=== PATIENT | female | born 1965 | race Caucasian/White ===

== ENCOUNTER → 2021-07-02 | Outpatient (CLI) | payer OTHER, SELFPAY ==
--- NOTE | 2021-07-01 | FLU_PTH ---
PATIENT: VIRIDIANA CARRASCO [facility] U#:[id number] AGE/SX: 56/F ROOM: RE07/02/[address]: Dr. Page Quispe MD : 1965 BED: DIS: 07/02/2021 SPEC #: [id number] RECD: 07/01/21 16:44 STATUS: IVA REMiranda #: [id number] VENKATA: 07/01/21 00:[address]: Page Quispe DEPT: CYTOLOGY RECD BY: Lyle Bradford ENTERED: 07/02/21 09:17 SP TYPE: Fluid OTHR DR: Dr. Geetha Barger MD Tissues: A - Thyroid gland, NOS B - Thyroid gland, NOS C - Thyroid gland, NOS D - Thyroid gland, NOS Procedures: Special Stain Group II Surgery Specimen Level IV Cytospin Fluid HEADER OPERATION: Fine needle aspiration, left and right thyroid PRE-OP DIAGNOSIS: Abnormal thyroid ultrasound TISSUE SUBMITTED: A - Right mid thyroid nodule fluid, B - Right mid thyroid nodule x6 slides, C - Left mid thyroid nodule fluid, D - Left mid thyroid nodule x6 slides DIAGNOSIS CYTOLOGY A. Right mid thyroid nodule fluid, fine needle aspiration (cytospin and cell block): Consistent with benign follicular/colloid nodule with cystic changes ([place] category II). Adequate for evaluation. B. Right mid thyroid nodule, fine needle aspiration (smears): Consistent with benign follicular nodule with cystic changes ([place] category II). Adequate for evaluation. C. Left mid thyroid nodule fluid, fine needle aspiration (cytospin and cell block): Consistent with benign follicular/colloid nodule ([place] category II). Adequate for evaluation. D. Left mid thyroid nodule, fine needle aspiration (smears): Consistent with benign follicular nodule with cystic changes ([place] category II). Adequate for evaluation. SJ:gray 07/03/2021 COMMENT Correlation with clinical, radiologic findings and appropriate follow up are necessary. CYTOLOGY STUDY Slides are reviewed. CYTOLOGY GROSS A - Received is 15 ml of red cloudy fluid labeled with the patient's name and and designated per the requisition as right mid thyroid. Submitted for cytology preparation including cell block. B - Received are six smears labeled with the patient's name and designated per the requisition as right mid thyroid. Submitted for staining. C - Received is 15 ml of red cloudy fluid labeled with the patient's name and and designated per the requisition as left mid thyroid. Submitted for cytology preparation including cell block. D - Received are six smears labeled with the patient's name and designated per the requisition as left mid thyroid. Submitted for staining. / gray 07/02/2021 TC:5 CPT: 08767 x4, 93571 x2
== END | disposition home or self-care (01) ==
LOC: LABSPEC 09:01
PROVIDERS: PCP Internal Medicine; Referring Provider Surgery; Visit Provider Surgery
DX: R93.89 Abnormal findings on diagnostic imaging of other specified body structures (principal)
CPT/HCPCS: 88108; 88305; 88313

== ENCOUNTER 2022-10-22 10:42 | Emergency (ER) | payer OTHER, SELFPAY ==
[2022-10-22 10:43] VITALS: BP 175/93; PULSE 59; RESP 18; TEMP 35.8; O2SAT 99; BMI 35.2
--- NOTE | 2022-10-22 11:07 | CT_ITS ---
STUDY: CT ABDOMEN AND PELVIS WITH CONTRAST REASON FOR EXAM: Female, 57 years old. Abdominal pain RADIATION DOSAGE (If Supplied By Facility): CTDIvol = ( 18.13 ) mGy, DLP = ( 1156.59 ) mGycm TECHNIQUE: Transaxial images were obtained from the dome of the diaphragm to the symphysis pubis without oral contrast. IV 100mL Isovue-300 was administered. Sagittal and coronal images were reconstructed. Individualized dose optimization techniques were used for this CT. COMPARISON: Comparison is made with prior study dated April 11, 2015. FINDINGS: The visualized lung bases are unremarkable. The visualized portions of the heart are within normal limits. There is decreased attenuation of the liver consistent with steatosis. Stable subcentimeters cyst in the posterior aspect of the right lobe of the liver superiorly. Normal gallbladder and extrahepatic biliary system. Normal spleen. Normal pancreas. Normal bilateral adrenal glands. Normal right kidney. Normal left kidney. There is a small hiatal hernia. Normal small intestine. There are scattered colonic diverticula consistent with diverticulosis. The appendix is visualized and appears normal. Normal abdominal aorta. Normal inferior vena cava. Normal retroperitoneum. Normal urinary bladder. Bilateral tubal ligation clips are seen. There is a small umbilical hernia containing fat. Normal osseous structures. CT/Abdomen/Pelvis W IV Cont ONLY IMPRESSION: Sigmoid diverticulosis without evidence of acute diverticulitis at this time. Fatty infiltration of liver. Small hepatic cyst. Electronically Signed: Reinaldo Turner MD at 12:18 EDT ,
--- NOTE | 2022-10-22 11:25 | US_ITS ---
STUDY: ABDOMINAL ULTRASOUND - RIGHT UPPER QUADRANT REASON FOR VISIT: Female, 57 years old rut pain TECHNIQUE: Ultrasound evaluation of the right upper quadrant was performed with real-time and static finn-scale imaging. TECHNICAL QUALITY: Adequate. COMPARISON: Comparison is made with prior CT scan of the abdomen and pelvis done earlier in the day. FINDINGS: Liver: The liver measures 16.9 cm. There is increased echogenicity consistent with fatty infiltration. The bile ducts are within normal limits. There is hepatic color flow. The direction of portal flow is hepatopetal. There is a 1 cm x 0.9 cm x 0.7 cm cyst in the midportion of the right lobe of the liver. Gallbladder: Normal distended gallbladder. The gallbladder wall measures 1.8 mm. There is a negative sonographic Bruce''s sign. There is no pericholecystic fluid. There are no gallstones. Sludge is seen within the gallbladder lumen. Common Bile Duct (C.B.D.): The common bile duct measures 3.5 mm. Pancreas: Normal size of the head, body and tail of the pancreas. There is increased echogenicity of the pancreas. There is no demonstrated pancreatic mass or cyst. Right Kidney: Normal size of the right kidney. The right kidney measures 10 cm x 6.1 cm x 4.6 cm. Normal renal cortex. The right cortex measures 1 cm. There is no demonstrated renal mass or cyst. Prominent right renal pelvis. US/Gallbladder IMPRESSION: Fatty infiltration of the liver. 1 cm cyst in the right lobe of the liver. Electronically Signed: Reinaldo Turner MD at 12:41 EDT ,
[2022-10-22] MEDS: 0.9% Normal Saline (1000mL) 1,000 ML 1000 ML IV (11:28)
[2022-10-22 11:35] LABS: Absolute Lymphocyte Count 1.39 X10^3/uL (0.83-4.51); Absolute Neutrophil Count 5.8 X10^3/uL (2.0-7.7); Basophil# 0.05 X10^3/uL; Basophil% 0.6 % (0-1); Eosinophil# 0.05 X10^3/uL; Eosinophils% 0.6 % (0-5); Hematocrit 40.7 % (37-47); Hemoglobin 13.2 g/dL (12.0-15.0); Lymphocyte # 1.39 X10^3/ul (0.83-4.51); Lymphocyte % 17.8 % (19-41); Mean Corp Hgb Conc 32.4 g/dL (32-36); Mean Corpuscular Hgb 28.9 pg (27.0-32.0); Mean Corpuscular Volume 89.1 fL (81-99); Monocyte# 0.54 X10^3/uL; Monocyte% 6.9 % (0-10); NRBC Flagged by Analyzer 0 % (0-5); Neutrophil # 5.76 X10^3/uL (2.7-7.7); Neutrophil % 73.7 % (47-70); Platelet Count 144 K/mm3 (150-450); RBC Distribution Width CV 12.6 % (11.6-14.6); RBC Distribution Width SD 41.1 fl (35.1-43.9); Red Blood Count 4.57 M/mm3 (4.2-5.4); White Blood Count 7.8 K/mm3 (4.4-11.0)
--- NOTE | 2022-10-22 11:37 | ED.VIS.GI ---
HPI HPI - GI History of Present Illness Chief Complaint: Abd Pain Narrative Narrative: 57-year-old female presenting with epigastric and right upper quadrant pain. Patient states this started last evening after she went to the fair. She states she ate some chicken covered with cheese, jalapenos, over top of fries. Patient states this was overall nongreasy. Patient states the pain was worse this morning upon awakening. She describes it as achy. No fevers or chills. PFSH PFSH Medical History Chronic neck and back pain Fatigue Gave to child recently Migraines Severe headache Shoulder pain Home Medications [id number] 8 mg-folic 400 mcg-K 50 mcg-lutein 300 mcg tablet 1 ea PO DAILY 04/11/15 [History Last Taken 04/11/15] nadolol 20 mg tablet 20 mg PO DAILY 04/11/15 [History Last Taken 04/10/15] calcium carbonate 500 mg calcium (1,250 mg) tablet (Calcium 500) 500 mg PO BID 03/06/17 [History Last Taken Unknown] omeprazole magnesium 2.5 mg oral suspension,delayed release (Prilosec) 10 mg PO QDAY 03/06/17 [History Last Taken Unknown] benzonatate 200 mg capsule 200 mg PO TID PRN cough #20 caps 04/12/18 [Rx Last Taken Unknown] Allergy/AdvReac Type Severity Reaction Status Date / Time pseudoephedrine HCl Allergy Shortness Verified 10/22/22 10:43 [From [facility]] of breath Family History Other Asthma Cancer Hypertension Surgical History H/O tubal ligation Social History Smoking Status: Former smoker alcohol intake: never ROS ROS ED Constitutional Constitutional ED: Denies chills, fever(s) or sweats Eyes Eyes: Denies blurry vision or change in vision ENT ENT ED: Denies ear pain or sore throat Cardiovascular Cardiovascular: Denies chest pain, palpitations or racing heartbeat Respiratory/Chest Respiratory/Chest: Denies cough, dyspnea or sputum Gastrointestinal Gastrointestinal: Reports abdominal pain and nausea; Denies constipation, diarrhea or vomiting Genitourinary Genitourinary ED: Denies dysuria, hematuria or urinary frequency Musculoskeletal Musculoskeletal: Denies arthralgias, myalgias or neck pain Integumentary Denies abscess, Abrasions or rash Neurologic Neurologic: Denies headache(s), paresthesias or weakness Psychiatric Psychiatric: Denies anxiety, depression, suicidal ideation or suicidal thoughts Endocrine Endocrinology: Denies polydipsia or polyuria EXAM Physical Exam Const Vital Signs: 10/22/22 10:43 Temperature 96.5 F L Temperature Source Temporal Pulse Rate 59 L Respiratory Rate 18 Blood Pressure 175/93 H Blood Pressure Mean 120 Pulse Ox 99 Oxygen Delivery Method Room Air Positive well nourished General Appearance ED: NAD HEENT Reports moist mucous membranes normocephalic and atraumatic Eyes PERRL Resp normal respiratory effort Effort and Inspection: Negative for respiratory distress Cardio regular rate and regular rhythm GI Palpation: tender epigastric and Bruce's sign Back/Spine no CVA tenderness Neuro CN's II-XII intact bilaterally and moves all extremities Sensorium / Orientation: alert Motor Exam: strength 5/5 throughout Psych mental status grossly normal and thought process normal MDM MDM MDM Narrative Medical decision making narrative: With right upper quadrant pain and nausea since last evening after eating food at the fair. Patient states pain was worse this morning. Differential includes gastritis, acute pancreatitis, cholecystitis, cholelithiasis, choledocholithiasis, colitis. CBC will be obtained to assess white blood cell count, hemoglobin, platelets. CMP to assess liver function, renal function, electrolytes. Lipase to assess for pancreatitis. Patient declines analgesia or antiemetics. She was given IV fluids. Quadrant ultrasound will be obtained. CBC shows no leukocytosis. Hemoglobin hematocrit are stable. Platelets slightly low at 144. LFTs and renal function are normal. Patient is normal. The abdomen pelvis shows no acute findings. There is a 1 cm on the right lobe of the liver. Right upper quadrant ultrasound was obtained and this was negative for acute findings as well. Again the cyst is noted. This point patient is stable for discharge as she had a normal work-up. Return precautions were discussed. He states he has nausea medicine at home. She declines analgesia. Impression: 1. Abdominal pain 2. Nausea Lab Data Attestation: I reviewed the patient's lab results. Labs: Laboratory Results - last 24 hr 10/22/22 11:30 WBC 7.8 RBC 4.57 Hgb 13.2 Hct 40.7 MCV 89.1 MCH 28.9 MCHC 32.4 RDW Std Deviation 41.1 RDW Coeff of Kamila 12.6 Plt Count 144 L MPV 11.0 Immature Gran % (Auto) 0.400 Neut % (Auto) 73.7 H Lymph % (Auto) 17.8 L [place] % (Auto) 6.9 Eos % (Auto) 0.6 Baso % (Auto) 0.6 Absolute Neuts (auto) 5.8 Absolute Lymphs (auto) 1.39 Nucleated RBC % 0 Sodium 139 Potassium 4.0 Chloride 106 Carbon Dioxide 29.0 Anion Gap 4 L BUN 18 Creatinine 0.83 Estim Creat Clear Calc 80.87 Est GFR (MDRD) Af Amer 91 Est GFR (MDRD) Non-Af 75 BUN/Creatinine Ratio 21.8 H Glucose 155 H Calcium 9.5 Total Bilirubin 0.40 AST 29 ALT 42 Alkaline Phosphatase 117 Total Protein 6.9 Albumin 3.7 Globulin 3.2 Albumin/Globulin Ratio 1.2 Lipase 25 Radiography Diagnostic Testing: Clinical Impression(s) from Imaging Studies Abdomen/Pelvis CT 10/22/22 11:07 IMPRESSION: Sigmoid diverticulosis without evidence of acute diverticulitis at this time. Fatty infiltration of liver. Small hepatic cyst. Electronically Signed: Reinaldo Turner MD at 12:18 EDT , Gallbladder Ultrasound 10/22/22 11:25 IMPRESSION: Fatty infiltration of the liver. 1 cm cyst in the right lobe of the liver. Electronically Signed: Reinaldo Turner MD at 12:41 EDT , Discharge Plan Triage Chief Complaint: Abd Pain ED Provider: Juan Horner Dx/Rx/DC Orders Instructions: ED Gastritis (Adult) Prescriptions: No Action omeprazole magnesium [Prilosec] 2.5 mg susp,delayed release for recon 10 mg PO QDAY calcium carbonate [Calcium 500] 500 mg calcium (1,250 mg) tablet 500 mg PO BID benzonatate 200 mg capsule 200 mg PO TID PRN (Reason: cough) Qty: 20 0RF nadolol 20 MG tablet 20 mg PO DAILY Patient Comments: blood pressure/heart [id number]-[id number]-ysss-[id number]-vit K-lut 1 EACH tablet 1 ea PO DAILY Patient Comments: supplement Primary Care Provider: Geetha Barger Referrals: Geetha Barger MD [Primary Care Provider] - Disposition Disposition: Home, Self Care Discharge Date/Time: 10/22/22 13:13
[2022-10-22 11:52] LABS: ALB/GLOB Ratio 1.2 RATIO (0.9-2.4); AST(SGOT) 29 U/L (15-37); Alanine Aminotransfer ALT/SGPT 42 U/L (13-56); Albumin, Serum 3.7 g/dL (3.2-5.0); Alkaline Phosphatase 117 U/L (45-117); Anion Gap 4 (5-15); BUN 18 mg/dL (7-18); BUN/Creat Ratio 21.8 RATIO (10-20); Calcium,Total 9.5 mg/dL (8.5-10.1); Chloride 106 mmol/L (98-107); Creatinine, Serum 0.83 mg/dL (0.55-1.02); EST Glomerular Filtration Rate 75 mL/min (>60); Est Glom Filt Rate - Afr Amer 91 mL/min (>60); Estimated Creatinine Clearance 80.87 ml/min; Globulin 3.2 g/dL (2.2-4.2); Glucose 155 mg/dL (74-106); Lipase 25 U/L (13-75); Protein, Total 6.9 g/dL (6.4-8.2); Sodium Level 139 mmol/L (136-145)
== END 2022-10-22 13:13 | disposition home or self-care (01) ==
PROVIDERS: Emergency Provider Student in an Organized Health Care Education/Training Program; PCP Internal Medicine; Visit Provider Student in an Organized Health Care Education/Training Program
DX: R10.11 Right upper quadrant pain (principal); R10.13 Epigastric pain; R11.0 Nausea; Z87.891 Personal history of nicotine dependence
CPT/HCPCS: 74177; 76705; 80053; 83690; 85025; 96360; 96361; 99282; J7030; Q9967; A4216

== ENCOUNTER → 2024-08-15 | Outpatient (CLI) | payer OTHER, SELFPAY | END | disposition home or self-care (01) | LOC: RAD 08:16 | PROVIDERS: PCP Internal Medicine | DX: R05.9 Cough, unspecified (principal) | CPT/HCPCS: 71046 ==